=== PATIENT | male | born 1970 | race Caucasian/White ===

== ENCOUNTER 2024-08-17 00:01 | Emergency (ER) | payer SELFPAY ==
[~2024-08-17] VITALS: Ht 167.6 cm; Wt 73.0 kg
[2024-08-17 00:07] VITALS: O2SAT 100
[2024-08-17 00:32] VITALS: BP 140/100; PULSE 66; RESP 18; TEMP 36.7; O2SAT 100
[2024-08-17] MEDS ORDERED: IBUPROFEN 600MG TABLET PO ONE (01:30)
[2024-08-17] MEDS ORDERED: BACITRACIN ZINC OINT UDPKT TOP ONE (01:30)
[2024-08-17] MEDS ORDERED: LIDOCAINE HCL/PF 1% 10 MG/ML 5ML VIAL INFIL ONE (01:30)
[2024-08-17] MEDS ORDERED: IBUP-2029 MT (03:23)
[2024-08-17] MEDS ORDERED: BO1 TP (03:23)
[2024-08-17] MEDS ORDERED: CEPH500C2 MT (03:23)
== END 2024-08-17 03:37 | disposition home or self-care (01) ==
LOC: ER 00:45
DX: S91.311A Laceration without foreign body, right foot, initial encounter (principal); W20.8XXA Other cause of strike by thrown, projected or falling object, initial encounter; Y93.89 Activity, other specified; Y92.89 Other specified places as the place of occurrence of the external cause; Y99.8 Other external cause status
CPT/HCPCS: 73630; 12002; 99283; J2003; Z7610 ×3; 13121

== ENCOUNTER 2024-08-18 19:50 | Emergency (ER) | payer SELFPAY ==
[~2024-08-18] VITALS: Ht 167.6 cm; Wt 77.0 kg
[~2024-08-18 19:50] MED LIST: BO1 TP; CEPH500C2 MT; IBUP-2029 MT
[2024-08-18 20:01] VITALS: TEMP 36.8; O2SAT 99
[2024-08-18 21:16] VITALS: BP 132/74; PULSE 86; RESP 16; O2SAT 97
== END 2024-08-18 21:15 | disposition home or self-care (01) ==
LOC: ER 19:50
DX: Z48.00 Encounter for change or removal of nonsurgical wound dressing (principal)
CPT/HCPCS: 99281